=== PATIENT | male | born 1950 | race Caucasian/White ===

== ENCOUNTER 2019-06-23 06:34 | Day surgery (SDC) | payer MEDICARE, BC ==
[2019-06-23] MEDS ORDERED: Propofol 200 MG/20 ML SDV IV ONE (06:35)
[2019-06-23] MEDS ORDERED: Lactated Ringers 1,000 ML IV SCH (06:45)
[2019-06-23] MEDS ORDERED: Sodium Chloride 0.9% 10 ML Syringe FLUSH PRN (06:45)
--- NOTE | 2019-06-23 08:27 | PCM.OPNOTE ---
- General Post-Op/Procedure Note Date of Surgery/Procedure: 06/23/19 Operative Procedure(s): c scope with bx Findings: 3 polyps ascending colon Pre Op Diagnosis: screening Post-Op Diagnosis: colon polyp x3 Anesthesia Technique: MAC Primary Surgeon: Ruben Spence Anesthesia Provider: Bryson Peter Pathology: ascending colon polyp x3 Complications: None Condition: Good Free Text/Narrative:: see dictation
[2019-06-23 09:16] VITALS: BP 121/71; PULSE 50
--- NOTE | 2019-06-23 13:51 | OR ---
DATE OF OPERATION: 06/23/2019 SURGEON: Ruben Spence MD PROCEDURE PERFORMED: Colonoscopy with cold forceps biopsy. PREOPERATIVE DIAGNOSIS: Need for colon cancer screening. POSTOPERATIVE DIAGNOSIS: Colon polyps x3, ascending colon. INDICATIONS FOR PROCEDURE: This is a 69-year-old white male who presents for his followup colonoscopy. He was offered and accepted same. DESCRIPTION OF OPERATION: After an excellent IV sedation was administered, digital rectal exam was performed. No marked abnormality was noted. Flexible colonoscope was inserted and advanced to the cecum. The prep was excellent. The following findings were noted: In the cecum and just beyond, there were three 2-mm areas that appeared to be polypoid in nature. These were biopsied and submitted in one container. The transverse colon was unremarkable. Descending colon was unremarkable. Sigmoid and rectum were unremarkable. The patient tolerated the procedure well, was taken to recovery. Results by letter. /[id number] /[id number]
== END 2019-06-23 08:59 | disposition home or self-care (01) ==
LOC: FB.SDS 06:34
PROVIDERS: ATTEND Surgery
DX: Z12.11 Encounter for screening for malignant neoplasm of colon (principal); K63.5 Polyp of colon; K21.9 Gastro-esophageal reflux disease without esophagitis; I10 Essential (primary) hypertension; M47.819 Spondylosis without myelopathy or radiculopathy, site unspecified; Z88.0 Allergy status to penicillin; Z90.49 Acquired absence of other specified parts of digestive tract; Z79.899 Other long term (current) drug therapy
CPT/HCPCS: 00812-QZ; 88305; J2704; J7120

== ENCOUNTER 2025-02-20 06:30 | Emergency (ER) | payer MEDICARE, BC ==
[2025-02-20 06:53] LABS: BASOPHILS ABSOLUTE AUTO 0.1 x10-3/uL (0.0-0.3); BASOPHILS PERCENT AUTO 0.8 % (0.3-3.8); EOSINOPHILS ABSOLUTE AUTO 0.4 x10-3/uL (0.0-0.6); EOSINOPHILS PERCENT AUTO 5.8 % (0.1-6.8); LYMPHOCYTES ABSOLUTE AUTO 1.8 x10-3/uL (0.5-4.5); LYMPHOCYTES PERCENT AUTO 26.1 % (15.8-45.3); MEAN PLATELET VOLUME 7.8 fL (6.7-11.0); MONOCYTES ABSOLUTE AUTO 0.6 x10-3/uL (0.0-1.2); MONOCYTES PERCENT AUTO 7.9 % (5.5-15.2); NEUTROPHILS ABSOLUTE AUTO 4.2 x10-3/uL (1.7-6.9); NEUTROPHILS PERCENT AUTO 59.4 % (40.3-71.8); PLATELET COUNT,PLT 330 x10(3)uL (117-477); RED BLOOD CELL COUNT 4.72 x10(6)uL (3.90-5.90); RED CELL DISTRIBUTION WIDTH 13.2 % (12.4-15.0); WHITE BLOOD CELL COUNT,WBC 7.0 x10-3/uL (3.2-10.1)
[2025-02-20] MEDS: Nitroglycerin 0.4 MG Tab.SL SL ONE (06:55)
[2025-02-20 07:00] LABS: BLOOD UREA NITROGEN,BUN 22 mg/dL (7-18); CARBON DIOXIDE,CO2 27 mmol/L (21-32); CHLORIDE,CL 107 mmol/L (100-110); CREATININE 0.9 mg/dL (0.70-1.30); ESTIMATED GFR 91 mL/min (>60); GLUCOSE RANDOM 109 mg/dL (80-116); POTASSIUM,K 4.5 mmol/L (3.5-5.3); SODIUM,NA 142 mmol/L (135-145)
[2025-02-20 07:06] LABS: A/G RATIO 1.0; ALANINE AMINOTRANSFERASE,ALT 24 U/L (12-36); ASPARTATE AMNIOTRANSFERASE,AST 17 IU/L (5-25); BILIRUBIN TOTAL 0.6 mg/dL (0.1-1.3); PROTEIN TOTAL,TP 7.3 g/dL (6.0-8.0)
[2025-02-20 07:16] LABS: PRO B-TYPE NATRIUR PEPT,BNPPRO 18.0 pg/mL (<=125)
[2025-02-20 08:59] VITALS: BP 119/65; PULSE 47
== END 2025-02-20 09:27 ==
LOC: FB.ED 06:30
DX: I24.9 Acute ischemic heart disease, unspecified (principal); E78.00 Pure hypercholesterolemia, unspecified; I10 Essential (primary) hypertension; K21.9 Gastro-esophageal reflux disease without esophagitis; Z88.0 Allergy status to penicillin; Z79.899 Other long term (current) drug therapy
CPT/HCPCS: 36415; 71045; 80053; 83880; 84484; 85025; 85379; 93005; 96360; 96361; 99285; A9270; J7030